=== PATIENT | female | born 1970 | race Caucasian/White ===

== ENCOUNTER → 2020-09-01 | Outpatient (BNVA) | payer MEDICAID, SELFPAY | PROVIDERS: Visit Provider Nurse Practitioner | DX: K21.9 Gastro-esophageal reflux disease without esophagitis (principal); K59.04 Chronic idiopathic constipation; Z79.899 Other long term (current) drug therapy; K63.5 Polyp of colon; K64.1 Second degree hemorrhoids | CPT/HCPCS: 99214 ==

== ENCOUNTER 2020-09-07 14:06 | Outpatient (REF) | payer MEDICAID, SELFPAY ==
--- NOTE | 2020-09-07 | US_ITS ---
EXAMINATION: PELVIC ULTRASOUND CLINICAL INFORMATION: Heavy menses. Evaluate for fibroids. COMPARISON: CT of the abdomen and pelvis November 2017 TECHNIQUE: Transabdominal and transvaginal pelvic ultrasound was performed. Transvaginal exam was performed for better visualization of the uterus and ovaries. FINDINGS: The uterus is retroverted and retroflexed and measures 10.9 x 5.4 x 4.9 cm in dimension. There is a 1.8 x 1.5 x 1.8 cm heterogeneous lesion in the posterior body of the uterus probably representing a fibroid. No other focal uterine lesion is seen. Endometrial thickness is normal estimated at 0.9 cm. The right ovary is enlarged and measures 5.4 x 5.6 x 4.9 cm, volume 78 mL. There is question of 2 adjacent right ovarian cysts versus single cyst with septation. Measured as 2 cysts, this measures 3.6 x 2.7 x 3.6 cm and 3.3 x 2.6 x 3.1 cm. This is a new finding from 2018 CT scan. The left ovary is normal-appearing and measures 2 x 2.7 x 2.2 cm. There is a small amount of fluid in the pelvis. IMPRESSION: 1.5 x 1.8 cm uterine fibroid. Normal thickness endometrium. Enlarged ovary containing 2 adjacent cysts versus a single complex cyst with septation. Measured as 2 cysts, these measure 3.6 x 2.7 x 3.6 cm and 3.3 x 2.6 x 3.1 cm.
[2020-09-07 16:24] LABS: Anion Gap 12 (12-20); Blood Urea Nitrogen 11 mg/dL (9-16); Calcium 9.3 mg/dL (8.4-10.2); Carbon Dioxide 28 mmol/L (22-29); Chloride 100 mmol/L (96-108); Estimated Glomerular Filt Rate > 60; Glucose Random 79 mg/dL (60-115); Potassium 4.1 mmol/l (3.3-5.1); Sodium 136 mmol/L (135-145)
[2020-09-07 16:45] LABS: Thyroid Stimulating Hormone 0.04 mIU/mL (0.32-4.0)
[2020-09-08 19:07] LABS: Follicle Stimulating Hormone 2.7 mIU/mL; Lutenizing Hormone 7.9 mIU/mL; Thyroglobulin 0.2 ng/mL; Thyroglobulin Antibodies <1 IU/mL (< or = 1); Triiodothyronine T3 Total 78 ng/dL (76-181)
[2020-09-15 14:01] LABS: IGF-1 (Somatomedin C) 114 ng/mL (50-317); IGF-1 Z Score (Female) -0.4 SD (-2.0 - +2.0)
[2020-09-16 22:32] LABS: Estradiol Free 5.29 pg/mL; Estradiol, Ultrasensitive 338 pg/mL
== END 2020-09-07 14:07 | disposition home or self-care (01) ==
LOC: HO.US 14:06
PROVIDERS: PCP Internal Medicine; Referring Provider Internal Medicine; Visit Provider Internal Medicine
DX: N92.0 Excessive and frequent menstruation with regular cycle (principal); E89.0 Postprocedural hypothyroidism; D35.2 Benign neoplasm of pituitary gland; E27.49 Other adrenocortical insufficiency; Z85.850 Personal history of malignant neoplasm of thyroid
CPT/HCPCS: 36415; 76830; 76856; 80048; 82670; 83001; 83002; 84305; 84432; 84439; 84443; 84480; 86800

== ENCOUNTER 2020-09-08 12:56 | Outpatient (REF) | payer MEDICAID, SELFPAY ==
--- NOTE | 2020-09-08 | US_ITS ---
EXAMINATION: ULTRASOUND SOFT TISSUE HEAD AND NECK CLINICAL INFORMATION: History of thyroid cancer. COMPARISON: None TECHNIQUE: Limited ultrasound imaging to the anterior neck was performed. FINDINGS: There are small lymph nodes in the right and left neck. Right Neck: Level 2 lymph node measures 1.6 x 0.6 x 1.9 cm. It has a normal echotexture. Previously it measured 2.2 x 0.9 x 1.0 cm. Left Neck: There is a solitary-appearing new lymph node measuring 1.8 x 0.8 x 1.7 cm. It has normal echotexture. No additional lymph nodes seen. IMPRESSION: Benign lymph nodes in right and left neck as described above.
== END 2020-09-08 12:57 | disposition home or self-care (01) ==
LOC: HO.US 12:56
PROVIDERS: Visit Provider Internal Medicine
DX: Z85.850 Personal history of malignant neoplasm of thyroid (principal)
CPT/HCPCS: 76536

== ENCOUNTER 2020-09-09 09:14 | Outpatient (REF) | payer MEDICAID, SELFPAY ==
[2020-09-09 16:29] LABS: CT PCR NOT DETECTED (Not Detect.); NG PCR NOT DETECTED (Not Detect.)
[2020-09-14 19:37] LABS: HPV mRNA E6/E7 Not Detected (Not Detected)
== END 2020-09-09 09:15 | disposition home or self-care (01) ==
LOC: HO.LAB 09:14
PROVIDERS: Visit Provider Obstetrics & Gynecology
DX: N92.0 Excessive and frequent menstruation with regular cycle (principal); D21.9 Benign neoplasm of connective and other soft tissue, unspecified; N83.299 Other ovarian cyst, unspecified side; Z88.5 Allergy status to narcotic agent; Z88.8 Allergy status to other drugs, medicaments and biological substances; Z79.52 Long term (current) use of systemic steroids; Z79.899 Other long term (current) drug therapy
CPT/HCPCS: 87491; 87591; 87624; 88142; 99204

== ENCOUNTER 2020-09-25 14:14 | Outpatient (REF) | payer MEDICAID, SELFPAY ==
--- NOTE | 2020-09-25 14:13 | MR_ITS ---
MR BRAIN WITHOUT AND WITH CONTRAST CLINICAL INFORMATION: Pituitary adenoma. COMPARISON: MRI brain 05/27/2019. TECHNIQUE: Multiplanar, multisequence MRI of the brain was obtained before and after the intravenous administration of 5 mL Gadavist. FINDINGS: Significant interval decrease in size of the left-sided pituitary lesion that continues to infiltrate the left cavernous sinus, currently measuring up to 1.3 cm TV by 1.2 cm CC by 1.4 cm AP compared to 1.8 cm TV by 1.9 cm CC by 1.7 cm AP on the prior study. And there is resolved rightward deviation of the infundibulum and there is no mass effect on the optic nerve apparatus. There is no hydrocephalus, extra-axial surface collection, or herniation. Mild chronic microangiopathy. The major flow voids at the skull base are preserved. There is no acute infarct on diffusion-weighted imaging. The cerebellar tonsils are normally positioned. The cerebellum and brainstem are normal. The craniocervical junction is normal. Osseous marrow signal intensity is homogenous. The visualized soft tissues are unremarkable. MR/MR head/brain wo/w con IMPRESSION: Significant interval decrease in size of the left-sided pituitary lesion that continues to infiltrate the left cavernous sinus, currently measuring up to 1.4 cm compared to 1.9 cm previously. Resolved rightward mass effect on the infundibulum. No mass effect on the optic nerve apparatus.
== END 2020-09-25 14:15 | disposition home or self-care (01) ==
LOC: HO.MRI 14:14
PROVIDERS: Visit Provider Neurological Surgery
DX: D35.2 Benign neoplasm of pituitary gland (principal)
CPT/HCPCS: 70553; A9585

== ENCOUNTER → 2020-09-30 12:52 | Outpatient (BNVA) | payer MEDICAID, SELFPAY | PROVIDERS: PCP Internal Medicine; Visit Provider Nurse Practitioner | DX: K21.9 Gastro-esophageal reflux disease without esophagitis (principal); K59.04 Chronic idiopathic constipation; R14.0 Abdominal distension (gaseous); Z79.899 Other long term (current) drug therapy | CPT/HCPCS: 99212 ==

== ENCOUNTER 2020-10-01 10:01 | Outpatient (REF) | payer MEDICAID, SELFPAY | END 2020-10-01 10:02 | disposition home or self-care (01) | LOC: HO.LAB 10:01 | PROVIDERS: PCP Internal Medicine; Visit Provider Obstetrics & Gynecology | DX: Z13.89 Encounter for screening for other disorder (principal) | CPT/HCPCS: 88305 ==

== ENCOUNTER → 2020-10-12 14:06 | Outpatient (BNVA) | payer MEDICAID, SELFPAY | PROVIDERS: Visit Provider Obstetrics & Gynecology | DX: Z76.89 Persons encountering health services in other specified circumstances (principal) ==

== ENCOUNTER → 2020-10-21 11:56 | Outpatient (BNVA) | payer MEDICAID, SELFPAY | PROVIDERS: Visit Provider Obstetrics & Gynecology | DX: Z76.89 Persons encountering health services in other specified circumstances (principal) ==

== ENCOUNTER 2020-11-03 07:35 | Outpatient (REF) | payer MEDICAID, SELFPAY ==
[2020-11-04 06:58] LABS: Cortisol 30 Minute 16.1 mcg/dL; Cortisol 60 Minute 16.9 mcg/dL; Cortisol Baseline 4.8 mcg/dL
[2020-11-04 21:52] LABS: Adrenocorticotropic Hormone 11 pg/mL (6-50)
== END 2020-11-03 07:36 | disposition home or self-care (01) ==
LOC: HO.MDS 07:35
PROVIDERS: PCP Internal Medicine; Visit Provider Internal Medicine
DX: E27.40 Unspecified adrenocortical insufficiency (principal)
CPT/HCPCS: 82024; 82533; 96374; J0834

== ENCOUNTER → 2020-11-04 13:28 | Outpatient (BNVA) | payer MEDICAID, SELFPAY | PROVIDERS: PCP Internal Medicine; Visit Provider Nurse Practitioner | DX: Z76.89 Persons encountering health services in other specified circumstances (principal) ==

== ENCOUNTER 2020-11-23 11:48 | Outpatient (REF) | payer MEDICAID, SELFPAY ==
--- NOTE | 2020-11-23 11:52 | MM_ITS ---
EXAMINATION: MM SCREENING DIGITAL BREAST TOMOSYNTHESIS, BILATERAL CLINICAL INFORMATION: Screening. Asymptomatic. The lifetime risk of breast cancer based on the Tyrer-Cuzick Model is 8%. COMPARISON: Mammography: 12/11/2019 11/19/2019 TECHNIQUE: Digital breast tomosynthesis is performed in both the craniocaudal and mediolateral oblique views along with computer-aided detection (CAD). Synthesized 2D images are generated from the tomosynthesis. FINDINGS: The breasts are heterogeneously dense, which may obscure small masses (ACR BI-RADS breast composition Category c). There are no significant masses, abnormal calcifications, or other abnormalities. Parenchymal pattern is similar to prior exams. There is no developing density. No significant changes. MM/MM tomosynthesis screening BI IMPRESSION: No mammographic evidence of malignancy. ASSESSMENT: BI-RADS 1: Negative RECOMMENDATION: Routine annual mammography screening. This patient's information was entered into a reminder system with a target due date for their next mammogram.
== END 2020-11-23 11:49 | disposition home or self-care (01) ==
LOC: HO.MAMMO 11:48
PROVIDERS: PCP Internal Medicine; Visit Provider Internal Medicine
DX: Z12.31 Encounter for screening mammogram for malignant neoplasm of breast (principal)
CPT/HCPCS: 77063; 77067

== ENCOUNTER 2020-12-11 14:01 | Outpatient (REF) | payer MEDICAID, SELFPAY ==
--- NOTE | 2020-12-11 14:04 | US_ITS ---
EXAMINATION: US PELVIS COMPLETE US TRANSVAGINAL CLINICAL INFORMATION: Ovarian cysts. COMPARISON: Ultrasound pelvis 09/07/2020 TECHNIQUE: Transabdominal and transvaginal ultrasound of the pelvis is performed. FINDINGS: On transabdominal ultrasound, the uterus is retroverted and retroflexed measuring 9.5 cm in length, 5.3 cm in AP and 7.0 cm in transverse dimension. Endometrial thickness is 1.0 cm. There is a hypoechoic area in the posterior uterus consistent with a fibroid measuring 1.5 x 2.3 x 1.7 cm. Previously, it measured 1.8 x 1.5 x 1.8 cm. There are several small nabothian cysts in the cervix. Right ovary measured 2.6 x 1.8 x 1.5 cm and volume 3.6 mL. It appears unremarkable. Previously, the right ovary measures 5.4 x 5.6 x 4.9 cm. The left ovary measures 3.1 x 2.7 x 2.8 cm and volume 12.3 mL. There are 2 anechoic cysts measuring 2.3 x 1.6 x 1.8 cm and 1.3 x 1.3 x 1.3 cm. US/US pelvic complete IMPRESSION: Two left ovarian cysts. Previously seen 2 right ovarian cysts have resolved. Small uterine fibroid measuring 2.3 cm, previously measured 1.8 cm. Small nabothian cysts in the cervix. No free fluid in the cul-de-sac.
--- NOTE | 2020-12-11 14:04 | US_ITS ---
EXAMINATION: US PELVIS COMPLETE US TRANSVAGINAL CLINICAL INFORMATION: Ovarian cysts. COMPARISON: Ultrasound pelvis 09/07/2020 TECHNIQUE: Transabdominal and transvaginal ultrasound of the pelvis is performed. FINDINGS: On transabdominal ultrasound, the uterus is retroverted and retroflexed measuring 9.5 cm in length, 5.3 cm in AP and 7.0 cm in transverse dimension. Endometrial thickness is 1.0 cm. There is a hypoechoic area in the posterior uterus consistent with a fibroid measuring 1.5 x 2.3 x 1.7 cm. Previously, it measured 1.8 x 1.5 x 1.8 cm. There are several small nabothian cysts in the cervix. Right ovary measured 2.6 x 1.8 x 1.5 cm and volume 3.6 mL. It appears unremarkable. Previously, the right ovary measures 5.4 x 5.6 x 4.9 cm. The left ovary measures 3.1 x 2.7 x 2.8 cm and volume 12.3 mL. There are 2 anechoic cysts measuring 2.3 x 1.6 x 1.8 cm and 1.3 x 1.3 x 1.3 cm. US/US transvaginal IMPRESSION: Two left ovarian cysts. Previously seen 2 right ovarian cysts have resolved. Small uterine fibroid measuring 2.3 cm, previously measured 1.8 cm. Small nabothian cysts in the cervix. No free fluid in the cul-de-sac.
== END 2020-12-11 14:02 | disposition home or self-care (01) ==
LOC: HO.US 14:01
PROVIDERS: PCP Internal Medicine; Visit Provider Obstetrics & Gynecology
DX: D21.9 Benign neoplasm of connective and other soft tissue, unspecified (principal); N83.299 Other ovarian cyst, unspecified side; N92.0 Excessive and frequent menstruation with regular cycle
CPT/HCPCS: 76830; 76856

== ENCOUNTER 2020-12-18 06:59 | Outpatient (REF) | payer MEDICAID, SELFPAY | END 2020-12-18 07:00 | disposition home or self-care (01) | LOC: HO.LAB 06:59 | PROVIDERS: PCP Internal Medicine; Visit Provider Internal Medicine | DX: Z20.822 Contact with and (suspected) exposure to COVID-19 (principal) | CPT/HCPCS: 36415; C9803; U0003 ==

== ENCOUNTER → 2020-12-30 11:42 | Outpatient (BNVA) | payer MEDICAID, SELFPAY | PROVIDERS: PCP Internal Medicine; Visit Provider Obstetrics & Gynecology ==

== ENCOUNTER → 2021-01-27 14:00 | Outpatient (BNVA) | payer MEDICAID, SELFPAY | PROVIDERS: PCP Internal Medicine; Visit Provider Nurse Practitioner | DX: R10.9 Unspecified abdominal pain (principal); K63.5 Polyp of colon; K59.04 Chronic idiopathic constipation; K21.9 Gastro-esophageal reflux disease without esophagitis; Z79.899 Other long term (current) drug therapy | CPT/HCPCS: 99212; Q3014 ==

== ENCOUNTER 2021-03-30 15:27 | Outpatient (REF) | payer MEDICAID, SELFPAY ==
[2021-03-31 01:09] LABS: CT PCR NOT DETECTED (Not Detect.); NG PCR NOT DETECTED (Not Detect.)
== END 2021-03-30 15:28 | disposition home or self-care (01) ==
LOC: HO.LAB 15:27
PROVIDERS: PCP Internal Medicine; Visit Provider Obstetrics & Gynecology
DX: R10.2 Pelvic and perineal pain (principal)
CPT/HCPCS: 81003; 87491; 87591; 99212

== ENCOUNTER 2021-04-07 14:19 | Outpatient (REF) | payer MEDICAID, SELFPAY ==
--- NOTE | ~2021-04-07 | US_ITS ---
EXAMINATION: US PELVIS COMPLETE CLINICAL INFORMATION: Pelvic and perineal pain. COMPARISON: Ultrasound pelvis 12/11/2020 TECHNIQUE: Transabdominal and transvaginal imaging of the pelvis is performed. FINDINGS: Transabdominal and transvaginal imaging of the pelvis is performed. The uterus is retroverted and retroflexed measuring 8.0 cm in length, 5.0 cm in AP and 5.9 cm in transverse dimension. Endometrial thickness is 0.6 cm. There is a hypoechoic lesion in the posterior body of the uterus measuring 1.2 x 0.9 x 1.2 cm. Previously, it measured 1.5 x 2.3 x 1.7 cm. There are small nabothian cysts seen in the cervix on transvaginal ultrasound. Right ovary measures 2.0 x 1.6 x 1.9 cm and volume 3.2 mL. It appears unremarkable. Previously, the right ovary measured 2.6 x 1.8 x 1.5 cm. Left ovary measures 3.3 x 2.3 x 1.5 cm and volume 5.9 mL. There is a small anechoic cyst measuring 2.0 x 1.2 x 1.7 cm. There is a small amount of free fluid in the cul-de-sac. US/US pelvic complete IMPRESSION: Small uterine fibroid posterior body of uterus. It is stable. Small nabothian cysts in the cervix. 2 cm simple cyst left ovary. Previously, 2 left ovarian cysts visualized in the left ovary.
--- NOTE | ~2021-04-07 | US_ITS ---
EXAMINATION: US PELVIS COMPLETE CLINICAL INFORMATION: Pelvic and perineal pain. COMPARISON: Ultrasound pelvis 12/11/2020 TECHNIQUE: Transabdominal and transvaginal imaging of the pelvis is performed. FINDINGS: Transabdominal and transvaginal imaging of the pelvis is performed. The uterus is retroverted and retroflexed measuring 8.0 cm in length, 5.0 cm in AP and 5.9 cm in transverse dimension. Endometrial thickness is 0.6 cm. There is a hypoechoic lesion in the posterior body of the uterus measuring 1.2 x 0.9 x 1.2 cm. Previously, it measured 1.5 x 2.3 x 1.7 cm. There are small nabothian cysts seen in the cervix on transvaginal ultrasound. Right ovary measures 2.0 x 1.6 x 1.9 cm and volume 3.2 mL. It appears unremarkable. Previously, the right ovary measured 2.6 x 1.8 x 1.5 cm. Left ovary measures 3.3 x 2.3 x 1.5 cm and volume 5.9 mL. There is a small anechoic cyst measuring 2.0 x 1.2 x 1.7 cm. There is a small amount of free fluid in the cul-de-sac. US/US transvaginal IMPRESSION: Small uterine fibroid posterior body of uterus. It is stable. Small nabothian cysts in the cervix. 2 cm simple cyst left ovary. Previously, 2 left ovarian cysts visualized in the left ovary.
== END 2021-04-07 14:20 | disposition home or self-care (01) ==
LOC: HO.US 14:19
PROVIDERS: Visit Provider Obstetrics & Gynecology
DX: R10.2 Pelvic and perineal pain (principal)
CPT/HCPCS: 76830; 76856

== ENCOUNTER 2021-04-13 12:55 | Outpatient (REF) | payer MEDICAID, SELFPAY ==
--- NOTE | ~2021-04-13 | US_ITS ---
EXAMINATION: US SOFT TISSUE NECK CLINICAL INFORMATION: Personal history of malignant neoplasm of thyroid. COMPARISON: Ultrasound soft tissue head and neck dated 09/09/2020. TECHNIQUE: Ultrasound of the neck soft tissues is performed with high- frequency gentile-scale imaging and color Doppler. FINDINGS: THYROID BED: Prior thyroidectomy. No residual thyroid tissue demonstrated in the thyroid bed. No cystic or solid nodules demonstrated in the thyroid bed. RIGHT NECK SOFT TISSUES: Scattered architecturally normal nodes are present. The nodes show normal fatty hilus, normal cortical thickness, and no cystic change or calcification. No abnormal color flow. The largest nodes are as follows: Level 1B: 0.9 x 0.6 x 0.6 cm. Normal michael architecture. LEFT NECK SOFT TISSUES: Scattered architecturally normal nodes are present. The nodes show normal fatty hilus, normal cortical thickness, and no cystic change or calcification. No abnormal color flow. The largest nodes are as follows: Level 3: 1.2 x 0.9 x 0.9 cm. Normal michael architecture. US/US soft tiss head and/or neck IMPRESSION: 1. Bilateral neck benign lymph nodes as described above.
== END 2021-04-13 12:56 | disposition home or self-care (01) ==
LOC: HO.US 12:55
PROVIDERS: Visit Provider Internal Medicine
DX: R10.2 Pelvic and perineal pain (principal); Z85.850 Personal history of malignant neoplasm of thyroid
CPT/HCPCS: 76536

== ENCOUNTER → 2021-05-10 09:17 | Outpatient (BNVA) | payer MEDICAID, SELFPAY | PROVIDERS: PCP Internal Medicine; Visit Provider Internal Medicine ==

== ENCOUNTER → 2021-06-04 13:34 | Outpatient (BNVA) | payer MEDICAID, SELFPAY | PROVIDERS: PCP Internal Medicine; Visit Provider Nurse Practitioner ==

== ENCOUNTER 2021-06-08 07:39 | Outpatient (REF) | payer MEDICAID, SELFPAY ==
[2021-06-08 08:59] LABS: Free T4 (Free Thyroxine) 1.38 ng/dL (0.71-1.85); Thyroid Stimulating Hormone 0.01 uIU/mL (0.32-4.0)
[2021-06-09 10:36] LABS: Triiodothyronine T3 Total 108 ng/dL (76-181)
[2021-06-09 22:12] LABS: Thyroglobulin 0.1 ng/mL; Thyroglobulin Antibodies <1 IU/mL (< or = 1)
== END 2021-06-08 07:40 | disposition home or self-care (01) ==
LOC: HO.LAB 07:39
PROVIDERS: PCP Internal Medicine; Visit Provider Internal Medicine
DX: Z85.850 Personal history of malignant neoplasm of thyroid (principal)
CPT/HCPCS: 36415; 84432; 84439; 84443; 84480; 86800

== ENCOUNTER → 2021-10-04 15:55 | Outpatient (BNVA) | payer MEDICAID, SELFPAY | PROVIDERS: PCP Internal Medicine; Visit Provider Nurse Practitioner ==

== ENCOUNTER 2021-11-15 09:32 | Outpatient (REF) | payer MEDICAID, SELFPAY ==
[2021-11-15 11:04] LABS: COVID-19 Test Negative (Negative)
== END 2021-11-15 09:33 | disposition home or self-care (01) ==
LOC: HO.LAB 09:32
PROVIDERS: Visit Provider Internal Medicine
DX: Z20.822 Contact with and (suspected) exposure to COVID-19 (principal)
CPT/HCPCS: 36415; 87635; C9803